=== PATIENT | male | born 1930 | race Caucasian/White ===

== ENCOUNTER 2017-01-19 12:45 | Emergency (ER) | payer MEDICARE ==
[~2017-01-19] VITALS: Ht 180.3 cm; Wt 100.0 kg
[~2017-01-19 12:45] MED LIST: ASPI81TA2 PO; FLUO5DRO2 OP; LEVO88TA39 PO; NITR1PAT62 TD; SIMV80TA62 PO; [UNRECOGNIZED DRUG - OTHER] PO
--- OUTSIDE RECORDS SUMMARY | 2017-01-19 12:49 | XMS REPORT | Referral Summary ---
Author Author [facility] Organization [facility] Address Unknown Phone Unavailable Care Team Providers Care Pediatric Dermatologist Name Role Phone Misa Vela Primary Care Physician [phone] Encounter Date(s): 08/13/16 - 08/13/16 [facility] [address] [place] [address] Discharge Diagnosis: Allergic rhinitis Discharge Diagnosis: Pure hypercholesterolemia Discharge Diagnosis: Restless leg Discharge Diagnosis: Encounter for medication monitoring Discharge Diagnosis: Hypothyroidism 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 Discharge Disposition: 01-Home or Self Care Attending Physician: Daniel Vela MD Admitting Physician: Daniel Vela MD Vital Signs Most recent to 1 oldest [Reference Range]: Temperature Tympanic 35.7 degC [36.6-38.1 degC] *LOW* (08/13/16 9:40 AM) Peripheral Pulse 87 bpm Rate [60-100 bpm] (08/13/16 9:40 AM) Blood Pressure 130/85 mmHg [90-140/60-90 mmHg] (08/13/16 9:40 AM) Problem List Condition Effective Dates Status Health Status Informant 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) Cataracts(Confirmed) Active Grade III 2004 Active Transitional cell CA(Confirmed)1 Unspecified Active essential hypertension(Confirm ed) Goiter, Active unspecified(Confirme d) Shingles(Confirmed) Active History of malignant Active neoplasm of bladder(Confirmed) Pneumonia(Confirmed) 1950 Active Pure Active hypercholesterolemia (Confirmed) Restless Active leg(Confirmed) UTI - near 2011 Active syncope(Confirmed) Urinary calculus, Active unspecified(Confirme d) 1then chemotherapy Allergies, Adverse Reactions, Alerts Substance Reaction Severity Status Atorvastatin Calcium Rash Active cephalexin Rash Active iodine Active niacin Rash Active sulfanilamide topical Rash Active Medications Aspir 81 81 mg, Oral, Daily, 0 Refill(s) Start Date: 8/13/14 Status: Ordered atenolol 50 mg oral tablet mg tabs, Oral, Daily, 0 Refill(s) Start Date: 07/08/16 Status: Ordered atorvastatin 20 mg oral tablet mg tabs, Oral, Daily, 0 Refill(s) Start Date: 07/08/16 Status: Ordered fluorometholone-neomycin ophthalmic 0 Refill(s) Start Date: 01/23/15 Status: Ordered furosemide 40 mg oral tablet mg tabs, Oral, Daily, 0 Refill(s) Start Date: 07/08/16 Status: Ordered nitroglycerin 0.2 mg/hr transdermal film, extended release 1 patches, Topical, Daily, # 90 patches, 0 Refill(s) Start Date: 06/06/14 Status: Ordered pantoprazole Daily, 0 Refill(s) Start Date: 07/08/16 Status: Ordered potassium citrate 10 mEq oral tablet, extended release mEq tabs, Oral, TID, 0 Refill(s) Start Date: 07/08/16 Status: Ordered rOPINIRole 2 mg oral tablet 2 mg 1 tabs, Oral, Daily, # 90 tabs, 3 Refill(s), Pharmacy: [facility], 1 tabs Oral Daily Start Date: 11/24/15 Status: Ordered simvastatin 80 mg oral tablet 80 mg 1 tabs, Oral, Bedtime (once a day), # 90 tabs, 3 Refill(s), Pharmacy: [facility], 1 tabs Oral Bedtime (once a day) Start Date: 03/12/16 Status: Ordered Synthroid 88 mcg (0.088 mg) oral tablet See Instructions, TAKE 1 TABLET DAILY, # 90 tabs, 1 Refill(s), Pharmacy: [facility], TAKE 1 TABLET DAILY Start Date: 03/12/16 Status: Ordered warfarin 3 mg oral tablet mg tabs, Oral, Daily, 0 Refill(s) Start Date: 07/08/16 Status: Ordered Results Chemistry Most recent to 1 oldest [Reference Range]: Sodium Lvl [135-144 139 mEq/L mEq/L] (08/13/16 10:40 AM) Potassium Lvl 4.2 mEq/L [3.5-5.2 mEq/L] (08/13/16 10:40 AM) Chloride [99-111 106 mEq/L mEq/L] (08/13/16 10:40 AM) CO2 [23-31 mEq/L] 21 mEq/L *LOW* (08/13/16 10:40 AM) AGAP [3-20] 12 (08/13/16 10:40 AM) BUN [8-26 mg/dL] 25 mg/dL (08/13/16 10:40 AM) Glucose Lvl [70-99 112 mg/dL mg/dL] *HI* (08/13/16 10:40 AM) Creatinine Lvl 2.02 mg/dL [0.72-1.25 mg/dL] *HI* (08/13/16 10:40 AM) eGFR [>60 mL/min] 31 mL/min 1 *ABN* (08/13/16 10:40 AM) Calcium Lvl 9.3 mg/dL [8.9-10.5 mg/dL] (08/13/16 10:40 AM) 1Result Comment: Multiply eGFR results by 1.21 for race. Immunizations Vaccine Date Refusal Reason tetanus/diphth/pertuss (Tdap) adult/adol1 06/05/16 tetanus/diphth/pertuss (Tdap) adult/adol 10/01/12 influenza virus vaccine, inactivated 08/13/16 influenza virus vaccine, inactivated 07/31/15 influenza virus vaccine, inactivated 07/22/14 influenza virus vaccine, live 08/02/13 influenza virus vaccine, live 08/03/12 pneumococcal 13-valent conjugate vaccine 08/14/15 pneumococcal 23-polyvalent vaccine 09/01/06 pneumococcal 23-polyvalent vaccine 08/17/96 tetanus-diphth toxoids (Td) adult/adol 11/17/97 1Location History: given at [facility] Procedures Procedure Date Related Diagnosis Body Site Cataract extraction - right 2013 Decompressive acromioplasty - rotator cuff 2011 repair Parastomal hernia repair, adhesion lysis 2011 TURP and bladder tumor resection 2007 Transurethral resection of bladder tumor 2006 Colonoscopy 2005 Cystoscopy, left ureteral stent placement x7 2004 Nephroureterectomy - left 2004 Cystoscopy, left ureteral stent placement x7 2002 Cystoscopy, stent placement 1999 Cystoscopy, urethral dilation 1999 Colonoscopy1 1997 Repeat right inguinal hernia repair 1973 Right inguinal hernia repair 1969 Kidney and bladder removal Left inguinal hernia repair Pacemaker 1Negative Social History Social History Type Response Smoking Status Former smoker; Type: Cigarettes; Started at age: 16; Stopped at age: 34 Assessment and Plan Extracted from: Title: CDM Author: Daniel Vela MD Date: 08/13/16 Impression and Plan Diagnosis Pure hypercholesterolemia (TDE44-IE E78.00, Discharge, Medical). Restless leg (DJJ99-UO G25.81, Discharge, Medical). Allergic rhinitis (HNT53-RX J30.9, Discharge, Medical). Hypothyroidism (EWW66-TX E03.9, Discharge, Medical). Peripheral neuropathy due to chemotherapy (AYX87-MU G62.0, Discharge, Medical). Encounter for medication monitoring (GKI60-LD Z51.81, Discharge, Medical). Orders Orders (Selected) Outpatient Orders Future (On Hold) BMP: BMP: Fasting Lipid Profile: .
--- OUTSIDE RECORDS SUMMARY | 2017-01-19 12:49 | XMS REPORT | Referral Summary ---
Author Author [facility] Organization [facility] Address Unknown Phone Unavailable Care Team Providers Care Senior Environmental Technician Name Role Phone Mirian Misa Primary Care Physician [phone] Encounter VC Date(s): 05/10/15 - 05/10/15 [facility] [address] [place], [place] [address] Discharge Diagnosis: Urinary tract infection Discharge Diagnosis: PERSONAL HISTORY OF URINARY CALCULI Discharge Disposition: 01-Home or Self Care Attending Physician: Nadya Liu APRN Admitting Physician: Brody Spencer MD Referring Physician: Bennie Bruno MD Vital Signs Most recent to 1 oldest [Reference Range]: Blood Pressure 110/60 mmHg [90-140/60-90 mmHg] (05/10/15 3:48 PM) Problem List Condition Effective Dates Status Health [...] mg, Oral, Daily, 0 Refill(s) Start Date: 06/01/14 Status: Ordered Co-Q10 100 mg oral capsule 1 caps, Oral, BID, # 30 caps, 0 Refill(s) Start Date: 01/23/15 Status: Ordered fluorometholone-neomycin ophthalmic 0 Refill(s) Start Date: 01/23/15 Status: Ordered nitroglycerin 0.2 mg/hr transdermal film, extended release 1 patches, Topical, Daily, # 90 patches, 0 Refill(s) Start Date: 06/06/14 Status: Ordered rOPINIRole 2 mg oral tablet See Instructions, TAKE 1 TABLET AT BEDTIME, # 90 tabs, 1 Refill(s), eRx: [facility], TAKE 1 TABLET AT BEDTIME Start Date: 08/28/15 Status: Ordered simvastatin 80 mg oral tablet See Instructions, TAKE 1 TABLET BY MOUTH AT BEDTIME, # 90 tabs, 1 Refill(s), Pharmacy: [facility], TAKE 1 TABLET BY MOUTH AT BEDTIME Start Date: 05/30/15 Status: Ordered Synthroid 88 mcg (0.088 mg) oral tablet See Instructions, TAKE 1 TABLET DAILY, # 90 tabs, 1 Refill(s), eRx: [facility], TAKE 1 TABLET DAILY Start Date: 08/28/15 Status: Ordered Results No data available for this section Immunizations Vaccine Date Refusal Reason tetanus/diphth/pertuss (Tdap) adult/adol 10/01/12 influenza virus vaccine, inactivated 07/31/15 influenza virus vaccine, inactivated 07/22/14 influenza virus vaccine, live 08/02/13 influenza virus vaccine, live 08/03/12 pneumococcal 13-valent conjugate vaccine 08/14/15 pneumococcal 23-polyvalent vaccine 09/01/06 pneumococcal 23-polyvalent vaccine 08/17/96 tetanus-diphth toxoids (Td) adult/adol 11/17/97 Procedures Procedure Date Related Diagnosis Body Site [...] placement 1999 Cystoscopy, urethral dilation 1999 Colonoscopy1 1998 Repeat right inguinal hernia repair 1973 Right inguinal hernia repair 1970 Kidney and bladder removal Left inguinal hernia repair Pacemaker 1Negative Social History Social History Type Response Smoking Status Former smoker; Type: Cigarettes; Started at age: 16; Stopped at age: 34 Assessment and Plan Extracted from: Title: Office Visit Note Author: Noe Nadya Kelly DIRECTOR OF DEVELOPMENT Date: 05/10/15 Assessment/Plan 1.Urinary tract infection Hematuria, unspecified PERSONAL HISTORY OF URINARY CALCULI Patient will start Cipro. Follow-up in the office with Dr. Spencer for a cystoscopy as well as a renal bladder ultrasound. If his symptoms return prior to his follow-up appointment he will call our office. All of his questions were answered to his satisfaction. Orders: ciprofloxacin, 500 mg 1 tabs, Oral, q12hr, X 10 days, # 20 tabs, 0 Refill(s), [facility], 1 tabs Oral q12hr,x10 days US Renal/Bladder
[2017-01-19 12:50] VITALS: Ht 180.3 cm; Wt 100.0 kg
--- OUTSIDE RECORDS SUMMARY | 2017-01-19 12:50 | XMS REPORT | Referral Summary ---
Author Author [facility], [facility] Organization [facility] Address Unknown Phone Unavailable Care Team Providers Care Transplant Nurse Practitioner Name Role Phone Misa Vela Primary Care Physician [phone] Encounter VC Date(s): 02/13/16 - 02/13/16 [facility] [address] [place] [address] Discharge Diagnosis: Restless leg Discharge Diagnosis: Skin lesion of scalp Discharge Diagnosis: PN (peripheral neuropathy) Discharge Diagnosis: Hx of gout Discharge Diagnosis: Right arm pain Discharge Diagnosis: Hypothyroidism, unspecified Discharge Disposition: 01-Home or Self Care Attending Physician: Daniel Vela MD Admitting Physician: Daniel Vela MD Vital Signs Most recent to 1 oldest [Reference Range]: Temperature Tympanic 36.1 degC [36.6-38.1 degC] *LOW* (02/13/16 9:15 AM) Apical Heart Rate 69 bpm [60-100 bpm] (02/13/16 9:15 AM) Blood Pressure 126/72 mmHg [90-140/60-90 mmHg] (02/13/16 9:15 AM) SpO2 97 % (02/13/16 9:15 AM) Problem List Condition Effective Dates Status [...] Daily, # 90 tabs, 3 Refill(s), Pharmacy: [facility], 1 tabs Oral Daily Start Date: 11/24/15 Status: Ordered simvastatin 80 mg oral tablet 80 mg 1 tabs, Oral, Bedtime (once a day), # 90 tabs, 3 Refill(s), Pharmacy: [facility], 1 tabs Oral Bedtime (once a day) Start Date: 11/24/15 Status: Ordered Synthroid 88 mcg (0.088 mg) oral tablet See Instructions, TAKE 1 TABLET DAILY, # 90 tabs, 2 Refill(s), Pharmacy: [facility], TAKE 1 TABLET DAILY Start Date: 11/24/15 Status: Ordered Results Chemistry Most recent to 1 oldest [Reference Range]: Uric Acid [3.5-7.2 8.1 mg/dL mg/dL] *HI* (02/13/16 12:01 AM) Chol [0-199 mg/dL] 124 mg/dL (02/13/16 9:06 AM) Trig [0-149 mg/dL] 218 mg/dL *HI* (02/13/16 9:06 AM) HDL [40-84 mg/dL] 30 mg/dL *LOW* (02/13/16 9:06 AM) LDL [0-130 mg/dL] 50 mg/dL (02/13/16 9:06 AM) VLDL Cholesterol 44 mg/dL [0-28 mg/dL] *HI* (02/13/16 9:06 AM) Cardiac Risk 4.1 [0.0-5.7] (4/26/16 9:06 AM) TSH with Reflex Free 2.92 T4 [0.35-4.94] (02/13/16 9:06 AM) Immunizations Vaccine Date Refusal Reason tetanus/diphth/pertuss (Tdap) [...] 2011 repair Parastomal hernia repair, adhesion lysis 2010 TURP and bladder tumor resection 2006 Transurethral resection of bladder tumor 2006 Colonoscopy 2005 Cystoscopy, left ureteral stent placement x7 2003 Nephroureterectomy - left 2004 Cystoscopy, left ureteral [...] 34 Assessment and Plan Extracted from: Title: General Exam * Author: Daniel Vela MD Date: 02/13/16 Impression and Plan Diagnosis Hypothyroidism (XIH82-QK E03.9, Working, Medical). Pure hypercholesterolemia (BEB03-IO E78.0, Working, Medical). Skin lesion of scalp (MSC07-XD L98.9, Discharge, Medical). PN (peripheral neuropathy) (TYK73-GJ G62.9, Discharge, Medical). Hx of gout (ORS59-QO Z87.39, Discharge, Medical). Hypothyroidism, unspecified (NIF22-YL E03.9, Discharge, Medical). Right arm pain (ZSX37-VP M79.601, Discharge, Medical). Restless leg (JBQ87-AA G25.81, Discharge, Medical). Plan: Discussed plan to have shave excision for suspicious scalp lesions. Disucessed expectations including that the path report will likely not show complete removal (but hopefully removal will be completed by currettement and cautery.) Discussed alternative of ellipse excision - pros and cons or each technique. Questions answered. Informed consent obtained. Discussed overuse of right arm and discussed plan for neuorpathy Will check TSH In agreement with plan for restless leg syndrome Will check cholesterol Follow up in 6 months, otherwise come for excision . Patient Instructions: Counseled: Patient, Spouse.
--- OUTSIDE RECORDS SUMMARY | 2017-01-19 12:50 | XMS REPORT | Referral Summary ---
Author Author [facility], [facility] Organization [facility] Address Unknown Phone Unavailable Care Team Providers Care Industrial Fabric Cutter Name Role Phone Misa Vela Primary Care Physician [phone] Encounter VC Date(s): 11/14/15 - 11/14/15 [facility], [address] [place] [address] Discharge Diagnosis: Skin lesion of scalp Discharge Diagnosis: Right shoulder pain Discharge Diagnosis: Restless leg Discharge Diagnosis: Hypothyroidism Discharge Diagnosis: Unspecified essential hypertension Discharge Diagnosis: Pure hypercholesterolemia Discharge Disposition: 01-Home or Self Care Attending Physician: Daniel Vela MD Admitting Physician: Daniel Vela MD Vital Signs Most recent to 1 oldest [Reference Range]: Temperature Tympanic 36.8 degC [36.6-38.1 degC] (11/14/15 1:54 PM) Peripheral Pulse 88 bpm Rate [60-100 bpm] (11/14/15 1:54 PM) Blood Pressure 120/77 mmHg [90-140/60-90 mmHg] (11/14/15 1:54 PM) Problem List Condition Effective Dates Status Health Status Informant 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) Cataracts(Confirmed) Active Grade III 2004 Active Transitional cell CA(Confirmed)1 Unspecified Active essential hypertension(Confirm ed) Goiter, Active unspecified(Confirme d) Shingles(Confirmed) Active History of malignant Active neoplasm of bladder(Confirmed) Pneumonia(Confirmed) 1949 Active Pure Active hypercholesterolemia (Confirmed) Restless Active [...] BEDTIME, # 90 tabs, 1 Refill(s), eRx: [facility], TAKE 1 TABLET AT BEDTIME Start Date: 08/28/15 Status: Ordered simvastatin 80 mg oral tablet See Instructions, TAKE 1 TABLET BY MOUTH AT BEDTIME, # 90 tabs, 1 Refill(s), Pharmacy: [facility], TAKE 1 TABLET BY MOUTH AT BEDTIME Start Date: 05/30/15 Status: Ordered Synthroid 88 mcg (0.088 mg) oral tablet See Instructions, TAKE 1 TABLET DAILY, # 90 tabs, 1 Refill(s), eRx: [facility], TAKE 1 TABLET DAILY Start Date: [...] 34 Assessment and Plan Extracted from: Title: Get acquainted Author: Daniel Vela MD Date: 11/14/15 Assessment/Plan Hypothyroidism Pure hypercholesterolemia Restless leg Right shoulder pain Skin lesion of scalp Unspecified essential hypertension I think the shoulder pain is mostly rotator cuff dysfunction. Refer for physical therapy. I suggested topical hydrocortisone cream on the scalp lesion and follow-up in 2 -3 weeks if it does not improve with this approach. I think an underlying malignancy is unlikely, but if it does not improve we may need to remove the crusting to examine the underlying lesion. If all goes well, follow-up in 3 months with labs at that time to include fasting lipids and TSH. In the meantime we will continue current medications.
--- OUTSIDE RECORDS SUMMARY | 2017-01-19 12:50 | XMS REPORT | Referral Summary ---
Author Author [facility] Organization [facility] Address Unknown Phone Unavailable Care Team Providers Care Residence Life Director Name Role Phone Licha Bruno Primary Care Physician [phone] Encounter VC Date(s): 09/11/15 - 09/11/15 [facility] [address] [place], [place] [address] Discharge Diagnosis: History of malignant neoplasm of bladder Discharge Diagnosis: History of kidney cancer Discharge Disposition: 01-Home or Self Care Attending Physician: Brody Spencer MD Admitting Physician: Brody Spencer MD Vital Signs Most recent to 1 oldest [Reference Range]: Blood Pressure 148/92 mmHg [90-140/60-90 mmHg] *HI* (09/11/15 8:57 AM) Problem List Condition Effective Dates Status [...] BEDTIME, # 90 tabs, 1 Refill(s), eRx: [facility], TAKE 1 TABLET AT BEDTIME Start Date: 08/28/15 Status: Ordered simvastatin 80 mg oral tablet See Instructions, TAKE 1 TABLET BY MOUTH AT BEDTIME, # 90 tabs, 1 Refill(s), Pharmacy: [facility], TAKE 1 TABLET BY MOUTH AT BEDTIME Start Date: 05/30/15 Status: Ordered Synthroid 88 mcg (0.088 mg) oral tablet See Instructions, TAKE 1 TABLET DAILY, # 90 tabs, 1 Refill(s), eRx: [facility], TAKE 1 TABLET DAILY Start [...] Extracted from: Title: Office Visit Note Author: Brody Spencer MD Date: 09/11/15 Assessment/Plan History of kidney cancer Ordered: CT Abdomen Pelvis w/o Contrast History of malignant neoplasm of bladder
--- OUTSIDE RECORDS SUMMARY | 2017-01-19 12:50 | XMS REPORT | Continuity of Care Document ---
Author Author [facility] Organization [facility] Address Unknown Phone Unavailable Allergies Active Description Code Type Severity Reaction Onset Reported/Identified Relationship to Patient Clinical Status Yes iodine iodine Drug Allergy Severe DECREASED KIDNEY FUNCTION/PT ONLY HAS ONE KIDNEY 2010 Yes niacin niacin Drug Allergy Moderate GI UPSET 07/19/2011 Yes atorvastatin atorvastatin Drug Allergy Unknown UNKNOWN 08/04/2012 Yes cephalexin cephalexin Drug Allergy Unknown UPSET STOMACH 08/04/2012 Yes Sulfa (Sulfonamide Antibiotics) Sulfa (Sulfonamide Antibiotics) Drug Allergy Unknown UNKNOWN 08/04/2012 Yes cephalexin NKMA N/A Rash 02/15/2014 Yes niacin NKMA N/A Rash 02/15/2014 Yes sulfanilamide topical NKMA N/A Rash 02/15/2014 Yes Atorvastatin Calcium NKMA N/A [id number] 05/31/2014 Yes iodine NKMA N/A N/A 09/11/2015 Medications Problems Procedures Results Test Result Range LACTIC ACID - 08/03/12 00:40 LACTIC ACID 1.9 mmol/L 0.5-2.2 CREATINE KINASE (CK/CPK) - 08/03/12 00:40 CREATINE KINASE (CK/CPK) 240 Units/L < 309 SALICYLATE (ASPIRIN) - 08/03/12 00:40 SALICYLATE < 2.8 mg/dL 2.8-29.0 ALCOHOL (ETHANOL) SERUM - 08/03/12 00:40 ALCOHOL (ETHANOL) SERUM < 3 mg/dL < 10 ACETONE, QUANTITATIVE - 08/03/12 00:40 ACETONE, QUANTITATIVE < 10 mg/dL < 10 BETA HYDROXYBUTYRATE - 08/03/12 00:40 BETA HYDROXYBUTYRATE 0.1 mmol/L < 0.6 CHEM/HEM PROFILE-BEDSIDE - 08/03/12 19:10 POTASSIUM 3.8 mmol/L 3.5-5.3 METHOD Bedside ANION GAP 20 mmol/L 10-20 METHOD Bedside GLUCOSE 107 mg/dL 70-99 BLOOD UREA NITROGEN 27 mg/dL 7-20 CREATININE 2.2 mg/dL 0.8-1.3 HEMOGLOBIN 14.6 gm/dL 14.0-18.0 HEMATOCRIT 43.0 % 40.0-54.0 SODIUM 143 mmol/L 135-148 CHLORIDE 108 mmol/L 98-110 CARBON DIOXIDE 20 mmol/L 21-32 CALCIUM IONIZED 4.4 mg/dL 4.5-5.3 TROPONIN I BEDSIDE - 08/03/12 19:22 METHOD Bedside TROPONIN I < 0.04 ng/mL < 0.11 CBC W/DIFF - 08/03/12 19:28 EOSINOPHIL # 0.5 k/cumm 0.1-0.5 EOSINOPHIL % 5 % 2-4 GRANULOCYTE # 7.8 k/cumm 2.0-9.0 GRANULOCYTE % 79 % 50-75 LYMPHOCYTE # 0.8 k/cumm 1.0-4.0 LYMPHOCYTE % 8 % 20-30 MEAN CELL HGB 33.2 pg 27.0-33.0 MEAN CELL HGB CONCENTRATION 34.1 g/dl 32.0-36.0 MEAN CELL VOLUME 97.4 fl 80.0-100.0 MONOCYTE # 0.8 k/cumm 0.1-1.0 MONOCYTE % 8 % 4-6 RED BLOOD CELL 4.55 m/cumm 4.00-6.00 RED CELL DISTRIBUTION WIDTH 12.6 % 11.0- 15.6 WHITE BLOOD CELL 9.9 k/cumm 5.0-10.0 HEMOGLOBIN 15.1 gm/dL 14.0-18.0 HEMATOCRIT 44.3 % 40.0-54.0 PLATELET COUNT 199 k/cumm 150-450 HEPATIC FUNCTION PANEL - 08/03/12 19:28 BILI UNCONJUGATED 0.7 mg/dL 0.0-0.7 AST/SGOT 23 Units/L 10-37 ALT/SGPT 18 Units/L < 66 TOTAL PROTEIN 8.2 gm/dL 6.4-8.2 ALBUMIN 4.4 gm/dL 3.4-5.0 BILI TOTAL 0.9 mg/dL 0.0-1.0 ALKALINE PHOSPHATASE TOTAL 117 Units/L 50 -136 BILI CONJUGATED 0.1 mg/dL 0.0-0.3 D-DIMER QUANT - 08/03/12 19:28 D-DIMER QUANT < 150 ng/mL 0-229 ARTERIAL BLOOD GAS - 08/03/12 19:48 ABG BASE EXCESS -3.5 meq/L -3.0-3.0 ABG FIO2 ROOM AIR % ABG BICARBONATE 15.9 meq/L 23.0-28.0 ABG PCO2 18 mm Hg 34-45 ABG PH 7.56 7.35-7.45 ABG PO2 76 mm Hg 75-100 ABG O2 SATURATION 97 % 93-100 ABG SITE LT RADIAL UA MICROSCOPIC - 08/03/12 20:20 UA BACTERIA 3+ NEGATIVE UA EPITHELIAL CELLS 2+ epi/hpf 0 - 1+ UA RBC 0-3 rbc/hpf 0 - 3 UA VOLUME FOR EXAM 12.0 mL (12mL STD) UA WBC 20-50 wbc/hpf 0 - 5 URINE CULTURE - 08/03/12 20:20 Uncategorized BLOOD CULTURE - 08/04/12 00:20 Uncategorized B-TYPE NATRIURETIC PEPTIDE - 08/04/12 00:40 B-TYPE NATRIURETIC PEPTIDE 38 pg/mL < 100 BLOOD CULTURE - 08/04/12 00:40 Uncategorized CBC W/DIFF - 08/04/12 04:44 EOSINOPHIL # 0.3 k/cumm 0.1-0.5 EOSINOPHIL % 4 % 2-4 GRANULOCYTE # 7.0 k/cumm 2.0-9.0 GRANULOCYTE % 82 % 50-75 LYMPHOCYTE # 0.6 k/cumm 1.0-4.0 LYMPHOCYTE % 7 % 20-30 MEAN CELL HGB 34.5 pg 27.0-33.0 MEAN CELL HGB CONCENTRATION 34.2 g/dl 32.0-36.0 MEAN CELL VOLUME 100.8 fl 80.0-100.0 MONOCYTE # 0.6 k/cumm 0.1-1.0 MONOCYTE % 7 % 4-6 RED BLOOD CELL 3.69 m/cumm 4.00-6.00 RED CELL DISTRIBUTION WIDTH 13.2 % 11.0- 15.6 WHITE BLOOD CELL 8.5 k/cumm 5.0-10.0 HEMOGLOBIN 12.7 gm/dL 14.0-18.0 HEMATOCRIT 37.2 % 40.0-54.0 PLATELET COUNT 169 k/cumm 150-450 SED RATE - 08/04/12 04:44 SED RATE 21 mm/hr 0-7 METABOLIC PANEL, COMPREHN - 08/04/12 04:44 POTASSIUM 3.9 mmol/L 3.5-5.3 EST GFR (MDRD) 34 mL/min > 59 ANION GAP 11 mmol/L 5-15 EST CrCl (CG) 32 mL/min > 59 GLUCOSE 130 mg/dL 70-99 CALCIUM 8.0 mg/dL 8.5-10.1 BLOOD UREA NITROGEN 27 mg/dL 7-20 CREATININE 2.0 mg/dL 0.8-1.3 SODIUM 140 mmol/L 135-148 CHLORIDE 108 mmol/L 98-110 AST/SGOT 19 Units/L 10-37 ALT/SGPT 16 Units/L < 66 CARBON DIOXIDE 21 mmol/L 21-32 TOTAL PROTEIN 6.6 gm/dL 6.4-8.2 ALBUMIN 3.4 gm/dL 3.4-5.0 BILI TOTAL 0.8 mg/dL 0.0-1.0 ALKALINE PHOSPHATASE TOTAL 71 Units/L 50- 136 LIPID PANEL - 08/04/12 04:44 CHOLESTEROL/HDL RATIO 4.0 < 5.0 LDL CHOLESTEROL 40 mg/dL < 100 VLDL CHOLESTEROL 41 mg/dL < 30 TRIGLYCERIDES 204 mg/dL < 150 CHOLESTEROL 108 mg/dL < 200 HDL CHOLESTEROL 27 mg/dL > 39 THYROID STIM HORMONE (TSH) - 08/04/12 04:44 THYROID STIM HORMONE (TSH) 0.62 uIU/mL 0.34-4.82 PHOSPHORUS - 08/04/12 04:44 PHOSPHORUS 3.1 mg/dL 2.5-4.9 MAGNESIUM - 08/04/12 04:44 MAGNESIUM 1.7 mg/dL 1.8-2.4 VITAMIN B12 - 08/04/12 04:44 VITAMIN B12 116 pg/mL 211-911 HEMOGLOBIN A1C - 08/04/12 04:44 HEMOGLOBIN A1C 6.5 % < 5.7 TROPONIN I - 08/04/12 04:44 TROPONIN I < 0.02 ng/mL < 0.07 METHYLMALONIC ACID, SERUM - 08/04/12 04:44 METHYLMALONIC ACID, SERUM TEST NOT PERFORMED nmol/L 73-376 LABORATORY MISCELLANEOUS TEST - 08/04/12 10:52 PERFORMING LAB NMS LAB LABORATORY TEST RESULT Note LABORATORY TEST KETONE BODIES PNL,S UR SODIUM - 08/04/12 11:20 UR SODIUM COMMENT RANDOM UR SODIUM LEVEL 54 mmol/L 20-40 UR CREATININE - 08/04/12 11:20 UR CREATININE COMMENT RANDOM UR CREATININE LEVEL 147.1 mg/dL 44-467 UR DRUGS OF ABUSE SCREEN - 08/04/12 11:20 UR AMPHETAMINES SCREEN NEG (<1000 ng/mL) NEGATIVE UR BARBITURATE SCREEN NEG (< 200 ng/mL) NEGATIVE DRUGS OF ABUSE SCREEN COMMENT UR OPIATES SCREEN NEG (< 300 ng/mL) NEGATIVE UR PHENCYCLIDINE (PCP) SCREEN NEG (< 25 ng/mL) NEGATIVE UR CANNABINOIDS (THC) SCREEN NEG (< 50 ng/mL) NEGATIVE UR COCAINE METABOLITE SCREEN NEG (< 300 ng/mL) NEGATIVE UR METHADONE SCREEN NEG (< 300 ng/mL) NEGATIVE UR BENZODIAZEPINE SCREEN NEG (< 200 ng/mL) NEGATIVE CREATINE KINASE (CK/CPK) - 08/04/12 17:44 CREATINE KINASE (CK/CPK) 273 Units/L < 309 CK MB - 08/04/12 17:44 CK MB 5.9 ng/mL < 4.0 TROPONIN I - 08/04/12 17:44 TROPONIN I < 0.02 ng/mL < 0.07 RENAL FUNCTION PANEL - 08/05/12 05:20 POTASSIUM 3.9 mmol/L 3.5-5.3 EST GFR (MDRD) 39 mL/min > 59 ANION GAP 9 mmol/L 5-15 EST CrCl (CG) 36 mL/min > 59 GLUCOSE 124 mg/dL 70-99 CALCIUM 8.2 mg/dL 8.5-10.1 BLOOD UREA NITROGEN 25 mg/dL 7-20 CREATININE 1.8 mg/dL 0.8-1.3 SODIUM 140 mmol/L 135-148 CHLORIDE 106 mmol/L 98-110 CARBON DIOXIDE 25 mmol/L 21-32 ALBUMIN 3.5 gm/dL 3.4-5.0 PHOSPHORUS 2.4 mg/dL 2.5-4.9 MAGNESIUM - 08/05/12 05:20 MAGNESIUM 1.9 mg/dL 1.8-2.4 TROPONIN I - 08/05/12 05:20 TROPONIN I < 0.02 ng/mL < 0.07 CBC W/MANUAL DIFF - 08/05/12 05:20 MEAN CELL HGB 34.8 pg 27.0-33.0 MEAN CELL HGB CONCENTRATION 34.6 g/dl 32.0-36.0 MEAN CELL VOLUME 100.3 fl 80.0-100.0 RED BLOOD CELL 3.79 m/cumm 4.00-6.00 RED CELL DISTRIBUTION WIDTH 13.5 % 11.0- 15.6 WHITE BLOOD CELL 6.1 k/cumm 5.0-10.0 HEMOGLOBIN 13.2 gm/dL 14.0-18.0 HEMATOCRIT 38.0 % 40.0-54.0 PLATELET COUNT 154 k/cumm 150-450 MANUAL DIFF(O) - 08/05/12 05:20 BAND % 12 % 0-10 EOSINOPHIL # 0.2 k/cumm 0.1-0.5 EOSINOPHIL % 3 % 2-4 GRANULOCYTE # 4.6 k/cumm 2.0-9.0 LYMPHOCYTE # 0.9 k/cumm 1.0-4.0 LYMPHOCYTE % 14 % 20-30 DIFFERENTIAL MANUAL MONOCYTE # 0.4 k/cumm 0.1-1.0 MONOCYTE % 7 % 4-6 RBC MORPH NOTED SEGMENTED NEUTROPHIL % 64 % 50-70 ARTERIAL BLOOD GAS - 08/05/12 06:15 ABG BASE EXCESS -1.2 meq/L -3.0-3.0 ABG FIO2 ROOM AIR % ABG BICARBONATE 22.6 meq/L 23.0-28.0 ABG PCO2 35 mm Hg 34-45 ABG PH 7.42 7.35-7.45 ABG PO2 69 mm Hg 75-100 ABG O2 SATURATION 94 % 93-100 ABG SITE RT BRACH TROPONIN I BEDSIDE - 05/12/14 20:40 METHOD Bedside TROPONIN I < 0.04 ng/mL < 0.11 CHEM/HEM PROFILE-BEDSIDE - 05/12/14 20:42 POTASSIUM 4.0 mmol/L 3.5-5.3 METHOD Bedside ANION GAP 15 mmol/L 10-20 METHOD Bedside GLUCOSE 175 mg/dL 70-99 BLOOD UREA NITROGEN 32 mg/dL 7-20 CREATININE 2.6 mg/dL 0.8-1.3 HEMOGLOBIN 13.6 gm/dL 14.0-18.0 HEMATOCRIT 40.0 % 40.0-54.0 SODIUM 142 mmol/L 135-148 CHLORIDE 110 mmol/L 98-110 CARBON DIOXIDE 22 mmol/L 21-32 CALCIUM IONIZED 4.7 mg/dL 4.5-5.3 CBC - 05/12/14 20:43 MEAN CELL HGB 33.3 pg 27.0-33.0 MEAN CELL HGB CONCENTRATION 33.8 g/dL 32.0-37.0 MEAN CELL VOLUME 98.6 fl 80.0-100.0 RED BLOOD CELL 4.20 m/cumm 4.00-6.00 RED CELL DISTRIBUTION WIDTH 12.8 % 11.0- 15.6 WHITE BLOOD CELL 7.6 k/cumm 5.0-10.0 HEMOGLOBIN 14.0 gm/dL 14.0-18.0 HEMATOCRIT 41.4 % 40.0-54.0 PLATELET COUNT 210 k/cumm 150-400 Encounters ACCT No. Visit Date/Time Discharge Status Pt. Type Provider Facility Loc./Unit Complaint [id number] 05/12/2014 20:09:00 2013 23:25:00 DIS Emergency Sarah AVERY, Cyndy Us [facility] WThomasTRACE [id number] 08/04/2012 12:51:00 2011 12:57:00 DIS Inpatient Home AVERY, Jeny Willingham [facility] [id number]
--- OUTSIDE RECORDS SUMMARY | 2017-01-19 12:50 | XMS REPORT | Referral Summary ---
Author Organization Unknown Address Unknown Phone Unavailable Care Team Providers Care Financial Writer Name Role Phone Licha Bruno Primary Care Physician [phone] Encounter Date(s): 01/04/15 - 01/04/15 Via Ni Andrews, VIANEY, W , Otolaryngology [address] [place], [place] [address] Discharge Diagnosis: Bilateral sensorineural hearing loss Discharge Disposition: Home or Self Care Attending Physician: Gisell Sellers Admitting Physician: Gisell Sellers Vital Signs No data available for this section Problem List Condition Effective Dates Status Health Status Informant 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) Cataracts(Confirmed) Active Grade III 2003 Active Transitional cell CA(Confirmed)1 Unspecified Active essential hypertension(Confirm ed) Goiter, Active unspecified(Confirme d) Shingles(Confirmed) Active History of malignant Active neoplasm of bladder(Confirmed) Pneumonia(Confirmed) 1949 Active Pure Active hypercholesterolemia (Confirmed) Restless Active leg(Confirmed) UTI - near 2011 Active syncope(Confirmed) Urinary calculus, Active unspecified(Confirme d) 1then chemotherapy Allergies, Adverse Reactions, Alerts Substance Reaction Severity Status Atorvastatin Calcium Rash Active cephalexin Rash Active niacin Rash Active sulfanilamide topical Rash Active Medications Aspir 81 81 mg, Oral, Daily, 0 Refill(s) Start Date: 06/01/14 Status: Ordered nitroglycerin 0.2 mg/hr transdermal film, extended release 1 patches, Topical, Daily, # 90 patches, 0 Refill(s) Start Date: 06/06/14 Status: Ordered rOPINIRole 2 mg oral tablet See Instructions, TAKE 1 TABLET BY MOUTH AT BEDTIME, # 90 tabs, 0 Refill(s), Pharmacy: [facility], TAKE 1 TABLET BY MOUTH AT BEDTIME Special Instructions: TAKE 1 TABLET BY MOUTH AT BEDTIME Start Date: 12/02/14 Status: Ordered simvastatin 80 mg oral tablet See Instructions, TAKE 1 TABLET BY MOUTH AT BEDTIME, # 90 tabs, 0 Refill(s), Pharmacy: [facility], TAKE 1 TABLET BY MOUTH AT BEDTIME Special Instructions: TAKE 1 TABLET BY MOUTH AT BEDTIME Start Date: 12/02/14 Status: Ordered Synthroid 88 mcg (0.088 mg) oral tablet See Instructions, TAKE 1 TABLET BY MOUTH EVERY DAY, # 90 tabs, 0 Refill(s), Pharmacy: [facility], Patient will need follow up appointment prior to next refill, TAKE 1 TABLET BY MOUTH EVERY DAY Special Instructions: TAKE 1 TABLET BY MOUTH EVERY DAY Start Date: 12/02/14 Status: Ordered Results No data available for this section Immunizations Vaccine Date Refusal Reason tetanus/diphth/pertuss (Tdap) adult/adol 10/01/12 influenza virus vaccine, inactivated 07/22/14 influenza virus vaccine, live 08/02/13 influenza virus vaccine, live 08/03/12 pneumococcal 23-polyvalent vaccine 09/01/06 pneumococcal 23-polyvalent vaccine 08/17/96 tetanus-diphth toxoids (Td) adult/adol 11/17/97 Procedures Procedure Date Related Diagnosis Body Site Cataract extraction - right 2012 Decompressive acromioplasty - rotator cuff 2011 repair Parastomal hernia repair, adhesion lysis 2010 TURP and bladder tumor resection 2007 Transurethral [...] Stopped at age: 34 Assessment and Plan No data available for this section
--- OUTSIDE RECORDS SUMMARY | 2017-01-19 12:50 | XMS REPORT | Referral Summary ---
Author Author [facility] Organization [facility] Address Unknown Phone Unavailable Care Team Providers Care Reducing System Operator Name Role Phone Misa Vela Primary Care Physician [phone] Encounter VC Date(s): 03/12/16 - 03/12/16 [facility], Family [address] [place] [address] Discharge Diagnosis: Skin lesion of scalp Discharge Disposition: 01-Home or Self Care Attending Physician: Daniel Vela MD Admitting Physician: Daniel Vela MD Vital Signs Most recent to 1 oldest [Reference Range]: Peripheral Pulse 72 bpm Rate [60-100 bpm] (03/12/16 1:10 PM) Blood Pressure 130/82 mmHg [90-140/60-90 mmHg] (03/12/16 1:10 PM) Mean Arterial 98 mmHg Pressure, Cuff (03/12/16 1:10 PM) Problem List Condition Effective Dates Status [...] 0 Refill(s) Start Date: 06/01/14 Status: Ordered atenolol 50 mg oral tablet 50 mg 1 tabs, Oral, Daily, # 90 tabs, 1 Refill(s), Pharmacy: [facility], 1 tabs Oral Daily Start Date: 03/12/16 Status: Ordered atorvastatin 20 mg oral tablet 20 mg 1 tabs, Oral, Daily, # 90 tabs, 1 Refill(s), Pharmacy: [facility], 1 tabs Oral Daily Start Date: 03/12/16 Status: Ordered Co-Q10 100 mg oral capsule 1 caps, Oral, BID, # 30 caps, 0 Refill(s) Start Date: 01/23/15 Status: Ordered fluorometholone-neomycin ophthalmic 0 Refill(s) Start Date: 01/23/15 Status: Ordered furosemide 40 mg oral tablet 40 mg 1 tabs, Oral, Daily, # 180 tabs, 1 Refill(s), Pharmacy: [facility], 1 tabs Oral Daily Start Date: 03/12/16 Status: Ordered nitroglycerin 0.2 mg/hr transdermal film, extended release 1 patches, Topical, Daily, # 90 patches, 0 Refill(s) Start Date: 06/06/14 Status: Ordered pantoprazole 40 mg oral delayed release tablet 40 mg 1 tabs, Oral, Daily, # 90 tabs, 1 Refill(s), Pharmacy: [facility], 1 tabs Oral Daily Start Date: 03/12/16 Status: Ordered potassium chloride 10 mEq oral tablet, extended release 10 mEq 1 tabs, Oral, BID, # 180 tabs, 1 Refill(s), Pharmacy: [facility], 1 tabs Oral BID Start Date: 03/12/16 Status: Ordered rOPINIRole 2 mg oral tablet 2 mg 1 tabs, Oral, Daily, # 90 tabs, 3 Refill(s), Pharmacy: [facility], 1 tabs Oral Daily Start Date: 11/24/15 Status: Ordered simvastatin 80 mg oral tablet 80 mg 1 tabs, Oral, Bedtime (once a day), # 90 tabs, 3 Refill(s), Pharmacy: [facility], 1 tabs Oral Bedtime (once a day) Start Date: 03/12/16 Status: Ordered Synthroid 88 mcg (0.088 mg) oral tablet See Instructions, TAKE 1 TABLET DAILY, # 90 tabs, 1 Refill(s), Pharmacy: [facility], TAKE 1 TABLET DAILY Start Date: 03/12/16 Status: Ordered warfarin 1 mg oral tablet 1 mg 1 tabs, Oral, Daily, # 90 Each, 1 Refill(s), Pharmacy: [facility], 1 tabs Oral Daily Start Date: 03/12/16 Status: Ordered warfarin 3 mg oral tablet 3 mg 1 tabs, Oral, Daily, # 90 Each, 1 Refill(s), Pharmacy: [facility], 1 tabs Oral Daily Start Date: 03/12/16 Status: Ordered Results No data available for [...] right 2013 Decompressive acromioplasty - rotator cuff 2010 repair Parastomal hernia repair, adhesion lysis 2011 [...] 34 Assessment and Plan Extracted from: Title: Lesion excision, scalp Author: Daniel Vela MD Date: 03/12/16 Assessment/Plan 1.Skin lesion of scalp Discussed post procedure care and expectations. Specimen sent to pathology. Follow-up based on path report. Orders: simvastatin, 80 mg 1 tabs, Oral, Bedtime (once a day), # 90 tabs, 3 Refill(s), [facility], 1 tabs Oral Bedtime ( once a day)
--- OUTSIDE RECORDS SUMMARY | 2017-01-19 12:50 | XMS REPORT | Referral Summary ---
Author Author [facility] Organization [facility] Address Unknown Phone Unavailable Care Team Providers Care Automotive Center Manager Name Role Phone Licha Bruno Primary Care Physician [phone] Encounter VC Date(s): 08/14/15 - 08/14/15 [facility] [address] [place] [address] [place] [address] Discharge Disposition: 01-Home or Self Care Attending Physician: Karly Cool MD Admitting Physician: Karly Cool MD Vital Signs No data available for this [...] BEDTIME, # 90 tabs, 1 Refill(s), Pharmacy: [facility], TAKE 1 TABLET BY MOUTH AT BEDTIME Start Date: 05/30/15 Status: Ordered simvastatin 80 mg oral tablet See Instructions, TAKE 1 TABLET BY MOUTH AT BEDTIME, # 90 tabs, 1 Refill(s), Pharmacy: [facility], TAKE 1 TABLET BY MOUTH AT BEDTIME Start Date: 05/30/15 Status: Ordered Synthroid 88 mcg (0.088 mg) oral tablet See Instructions, TAKE 1 TABLET BY MOUTH EVERY DAY, # 90 tabs, 1 Refill(s), Pharmacy: [facility], TAKE 1 TABLET BY MOUTH EVERY DAY Start Date: 05/30/15 Status: Ordered Results No data available for [...] right 2012 Decompressive acromioplasty - rotator cuff 2010 repair Parastomal hernia repair, adhesion lysis 2010 [...]
--- OUTSIDE RECORDS SUMMARY | 2017-01-19 12:50 | XMS REPORT | Referral Summary ---
Author Author [facility] Organization [facility] Address Unknown Phone Unavailable Care Team Providers Care Cryptoanalysis Teacher Name Role Phone Misa Vela Primary Care Physician [phone] Encounter VC Date(s): 08/14/15 - 08/14/15 [facility] [address] [place] [address] [place] [address] Discharge Disposition: 01-Home or Self [...] DAILY, # 90 tabs, 2 Refill(s), Pharmacy: [facility], TAKE 1 TABLET DAILY Start Date: 11/24/15 Status: Ordered Results No data available for [...]
--- OUTSIDE RECORDS SUMMARY | 2017-01-19 12:50 | XMS REPORT | Referral Summary ---
Author Author [facility] Organization [facility] Address Unknown Phone Unavailable Care Team Providers Care Railroad Wheels And Axle Inspector Name Role Phone Misa Vela Primary Care Physician [phone] Encounter VC Date(s): 12/03/16 - 12/03/16 [facility], [address] [place] [address] [place] Discharge Diagnosis: Monoarticular arthritis Discharge Diagnosis: H/O: gout Discharge Disposition: 01-Home or Self Care Attending Physician: Daniel Vela MD Admitting Physician: Daniel Vela MD Vital Signs Most recent to 1 oldest [Reference Range]: Temperature Tympanic 36.9 degC [36.6-38.1 degC] (12/03/16 1:31 PM) Peripheral Pulse 71 bpm Rate [60-100 bpm] (12/03/16 1:31 PM) Respiratory Rate 16 br/min [14-20 br/min] (12/03/16 1:31 PM) Blood Pressure 130/60 mmHg [90-140/60-90 mmHg] (12/03/16 1:31 PM) SpO2 98 % (12/03/16 1:31 PM) Problem List Condition Effective Dates Status [...] 0 Refill(s) Start Date: 06/01/14 Status: Ordered fluorometholone-neomycin ophthalmic 0 Refill(s) Start Date: 01/23/15 Status: Ordered meloxicam 15 mg oral tablet 15 mg 1 tabs, Oral, Daily, # 15 tabs, 0 Refill(s), Pharmacy: [facility], 1 tabs Oral Daily Start Date: 12/03/16 Status: Ordered nitroglycerin 0.2 mg/hr transdermal film, extended release 1 patches, Topical, Daily, # 90 patches, 0 Refill(s) Start Date: 06/06/14 Status: Ordered rOPINIRole 2 mg oral tablet 2 mg 1 tabs, Oral, Daily, # 90 tabs, 3 Refill(s), Pharmacy: [facility], 1 tabs Oral Daily Start Date: 08/28/16 Status: Ordered simvastatin 80 mg oral tablet 80 mg 1 tabs, Oral, Bedtime (once a day), # 90 tabs, 3 Refill(s), Pharmacy: [facility], 1 tabs Oral Bedtime (once a day) Start Date: 03/12/16 Status: Ordered Synthroid 88 mcg (0.088 mg) oral tablet See Instructions, TAKE 1 TABLET DAILY, # 90 tabs, 1 Refill(s), Pharmacy: [facility], TAKE 1 TABLET DAILY Start Date: 03/12/16 Status: Ordered Results Hematology Most recent to 1 oldest [Reference Range]: WBC [4.8-10.8 7.1 10*3/uL 10*3/uL] (12/03/16 2:30 PM) RBC [4.60-6.20] 3.92 *LOW* (12/03/16 2:30 PM) Hgb [14.0-18.0 12.9 gm/dL gm/dL] *LOW* (12/03/16 2:30 PM) Hct [42.0-52.0 %] 38.8 % *LOW* (12/03/16 2:30 PM) MCV [82.0-99.0 fL] 99.0 fL (12/03/16 2:30 PM) MCH [27.0-32.0 pg] 32.9 pg *HI* (12/03/16 2:30 PM) MCHC [32.0-36.0 33.2 gm/dL gm/dL] (12/03/16 2:30 PM) RDW [11.5-14.5 %] 12.3 % (12/03/16 2:30 PM) Platelet [150-400 198 10*3/uL 10*3/uL] (12/03/16 2:30 PM) MPV [8.8-14.8 fL] 9.4 fL (12/03/16 2:30 PM) Immature 0.1 % Granulocytes (12/03/16 2:30 PM) [0.0-1.0 %] Neutrophils [51-75 66 % %] (12/03/16 2:30 PM) Lymphocytes [20-46 19 % %] *LOW* (12/03/16 2:30 PM) Monocytes [4-11 %] 11 % (12/03/16 2:30 PM) Eosinophils [0-4 %] 4 % (12/03/16 2:30 PM) Basophils [0-2 %] 0 % (12/03/16 2:30 PM) Neutro Absolute 4.66 [1.90-7.00] (12/03/16 2:30 PM) Lymph Absolute 1.35 [0.80-3.30] (12/03/16 2:30 PM) [place] Absolute 0.80 [0.30-1.00] (12/03/16 2:30 PM) Eos Absolute 0.25 [0.00-0.50] (12/03/16 2:30 PM) Baso Absolute 0.01 [0.00-0.20] (12/03/16 2:30 PM) Chemistry Most recent to 1 oldest [Reference Range]: Uric Acid [3.5-7.2 7.3 mg/dL mg/dL] *HI* (12/03/16 2:30 PM) Immunizations Given and Recorded Vaccine Date Status Refusal Reason tetanus/diphth/pertuss (Tdap) adult/adol1 06/05/16 Recorded tetanus/diphth/pertuss (Tdap) adult/adol 10/01/12 Recorded influenza virus vaccine, inactivated 10/25/16 Given influenza virus vaccine, inactivated 07/31/15 Given influenza virus vaccine, inactivated 07/22/14 Recorded influenza virus vaccine, live 08/02/13 Given influenza virus vaccine, live 08/03/12 Given pneumococcal 13-valent conjugate vaccine 08/14/15 Given pneumococcal 23-polyvalent vaccine 09/01/06 Recorded pneumococcal 23-polyvalent vaccine 08/17/96 Recorded tetanus-diphth toxoids (Td) adult/adol 11/17/97 Given 1Location History: given at [facility] [place], [place] ER Procedures Procedure Date Related Diagnosis Body [...] 34 Assessment and Plan Extracted from: Title: Acute OV Author: Daniel Vela MD Date: 12/03/16 Impression and Plan Diagnosis H/O: gout ([id number] Z87.39, Discharge, Medical). 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 Orders Orders (Selected) Outpatient Orders Future (On Hold) CBC w/ Differential: Uric Acid: Prescriptions Prescribed meloxicam 15 mg oral tablet: 15 mg=1 tabs, Oral, Daily, 15 tabs, 0 Refill(s).
--- OUTSIDE RECORDS SUMMARY | 2017-01-19 12:50 | XMS REPORT | Referral Summary ---
Author Author [facility] Organization [facility] Address Unknown Phone Unavailable Care Team Providers Care Air Conditioning Technician Name Role Phone Misa Vela Primary Care Physician [phone] Encounter VC Date(s): 07/31/15 - 07/31/15 [facility] [address] [place] [address] [place] [id number] Discharge Disposition: 01-Home or Self Care Attending Physician: Bennie Bruno MD Admitting Physician: Bennie Bruno MD Vital Signs No data available for [...] Daily, # 90 tabs, 3 Refill(s), Pharmacy: [facility], 1 tabs Oral Daily Start Date: 11/24/15 Status: Ordered simvastatin 80 mg oral tablet 80 mg 1 tabs, Oral, Bedtime (once a day), # 90 tabs, 3 Refill(s), Pharmacy: [facility], 1 tabs Oral Bedtime (once a day) Start Date: 11/24/15 Status: Ordered Synthroid 88 mcg (0.088 mg) oral tablet See Instructions, TAKE 1 TABLET DAILY, # 90 tabs, 2 Refill(s), Pharmacy: [facility], TAKE 1 TABLET DAILY Start Date: [...]
--- OUTSIDE RECORDS SUMMARY | 2017-01-19 12:50 | XMS REPORT | Referral Summary ---
Author Author [facility] Organization [facility] Address Unknown Phone Unavailable Care Team Providers Care Automotive Quality Engineer Name Role Phone Misa Vela Primary Care Physician [phone] Encounter VC Date(s): 06/28/15 - 06/28/15 [facility] [address] [place] [address] [place] [id number] Discharge Diagnosis: Synovitis of foot Discharge Disposition: 01-Home or Self Care Attending Physician: Bennie Bruno MD Admitting Physician: Bennie Bruno MD Vital Signs Most recent to 1 oldest [Reference Range]: Temperature Tympanic 36.9 degC [36.6-38.1 degC] (06/28/15 3:47 PM) Peripheral Pulse 85 bpm Rate [60-100 bpm] (06/28/15 3:47 PM) Blood Pressure 124/70 mmHg [90-140/60-90 mmHg] (06/28/15 3:47 PM) SpO2 94 % (06/28/15 3:47 PM) Problem List Condition Effective Dates Status [...] Daily, # 90 tabs, 3 Refill(s), Pharmacy: [facility], 1 tabs Oral Daily Start Date: 11/24/15 Status: Ordered simvastatin 80 mg oral tablet 80 mg 1 tabs, Oral, Bedtime (once a day), # 90 tabs, 3 Refill(s), Pharmacy: [facility], 1 tabs Oral Bedtime (once a day) Start Date: 11/24/15 Status: Ordered Synthroid 88 mcg (0.088 mg) oral tablet See Instructions, TAKE 1 TABLET DAILY, # 90 tabs, 2 Refill(s), Pharmacy: [facility], TAKE 1 TABLET DAILY Start Date: [...] 34 Assessment and Plan Extracted from: Title: Ambulatory Patient Education Author: Bennie Bruno MD Date: 06/28 Follow Up With: Where: When: Bennie Bruno [address] [place] [address] Drive; [place] [address] Business ([employer] Within 3 to 5 days, only if needed Comments: Extracted from: Title: Office Visit Note Author: Bennie Bruno MD Date: 06/28/15 Assessment/Plan Synovitis of foot He will be placed on Colcrys 0.6 mg, 2 pills initially and then one pill one hour later. He will call back if he has further problems. Orders: colchicine, See Instructions, Take 2 pills initially then 1 pill 1 hour later., # 3 tabs, 0 Refill(s), [facility]
--- OUTSIDE RECORDS SUMMARY | 2017-01-19 12:51 | XMS REPORT | Referral Summary ---
Author Author [facility] Organization [facility] Address Unknown Phone Unavailable Care Team Providers Care Battery Starter Name Role Phone Licha Bruno Primary Care Physician [phone] Encounter VC Date(s): 07/17/15 - 07/17/15 [facility] [address] [place] [address] [place] [id number] Discharge Diagnosis: Acute gout Discharge Disposition: 01-Home or Self Care Attending Physician: Bennie Bruno MD Admitting Physician: Bennie Bruno MD Vital Signs Most recent to 1 oldest [Reference Range]: Temperature Tympanic 36.2 degC [36.6-38.1 degC] *LOW* (07/17/15 9:42 AM) Peripheral Pulse 83 bpm Rate [60-100 bpm] (07/17/15 9:42 AM) Blood Pressure 132/86 mmHg [90-140/60-90 mmHg] (07/17/15 9:42 AM) SpO2 94 % (07/17/15 9:42 AM) Problem List Condition Effective Dates Status [...] BEDTIME, # 90 tabs, 1 Refill(s), Pharmacy: [facility], TAKE 1 TABLET BY MOUTH AT BEDTIME Start Date: 05/30/15 Status: Ordered simvastatin 80 mg oral tablet See Instructions, TAKE 1 TABLET BY MOUTH AT BEDTIME, # 90 tabs, 1 Refill(s), Pharmacy: [facility], TAKE 1 TABLET BY MOUTH AT BEDTIME Start Date: 05/30/15 Status: Ordered Synthroid 88 mcg (0.088 mg) oral tablet See Instructions, TAKE 1 TABLET BY MOUTH EVERY DAY, # 90 tabs, 1 Refill(s), Pharmacy: [facility], TAKE 1 TABLET BY MOUTH EVERY DAY Start Date: 05/30/15 Status: Ordered Results Chemistry Most recent to 1 oldest [Reference Range]: Uric Acid [3.5-7.2 7.2 mg/dL mg/dL] (07/17/15 10:35 AM) Immunizations Vaccine Date Refusal Reason tetanus/diphth/pertuss [...] Patient Education Author: Bennie Bruno MD Date: Family Medicine Gout Gout is an inflammatory arthritis caused by a buildup of uric acid crystals in the joints. Uric acid is a chemical that is normally present in the blood. When the level of uric acid in the blood is too high it can form crystals that deposit in your joints and tissues. This causes joint redness, soreness, and swelling (inflammation). Repeat attacks are common. Over time, uric acid crystals can form into masses (tophi) near a joint, destroying bone and causing disfigurement. Gout is treatable and often preventable. CAUSES The disease begins with elevated levels of uric acid in the blood. Uric acid is produced by your body when it breaks down a naturally found substance called purines. Certain foods you eat, such as meats and fish, contain high amounts of purines. Causes of an elevated uric acid level include: Being passed down from parent to child (heredity). Diseases that cause increased uric acid production (such as obesity, psoriasis, and certain cancers). Excessive alcohol use. Diet, especially diets rich in meat and seafood. Medicines, including certain cancer-fighting medicines (chemotherapy), water pills (diuretics), and aspirin. Chronic kidney disease. The kidneys are no longer able to remove uric acid well. Problems with metabolism. Conditions strongly associated with gout include: Obesity. High blood pressure. High cholesterol. Diabetes. Not everyone with elevated uric acid levels gets gout. It is not understood why some people get gout and others do not. Surgery, joint injury, and eating too much of certain foods are some of the factors that can lead to gout attacks. SYMPTOMS An attack of gout comes on quickly. It causes intense pain with redness, swelling, and warmth in a joint. Fever can occur. Often, only one joint is involved. Certain joints are more commonly involved: Base of the big toe. Knee. Ankle. Wrist. Finger. Without treatment, an attack usually goes away in a few days to weeks. Between attacks, you usually will not have symptoms, which is different from many other forms of arthritis. DIAGNOSIS Your caregiver will suspect gout based on your symptoms and exam. In some cases , tests may be recommended. The tests may include: Blood tests. Urine tests. X-rays. Joint fluid exam. This exam requires a needle to remove fluid from the joint (arthrocentesis). Using a microscope, gout is confirmed when uric acid crystals are seen in the joint fluid. TREATMENT There are two phases to gout treatment: treating the sudden onset (acute) attack and preventing attacks (prophylaxis). Treatment of an Acute Attack. Medicines are used. These include anti-inflammatory medicines or steroid medicines. An injection of steroid medicine into the affected joint is sometimes necessary. The painful joint is rested. Movement can worsen the arthritis. You may use warm or cold treatments on painful joints, depending which works best for you. Treatment to Prevent Attacks. If you suffer from frequent gout attacks, your caregiver may advise preventive medicine. These medicines are started after the acute attack subsides. These medicines either help your kidneys eliminate uric acid from your body or decrease your uric acid production. You may need to stay on these medicines for a very long time. The early phase of treatment with preventive medicine can be associated with an increase in acute gout attacks. For this reason, during the first few months of treatment, your caregiver may also advise you to take medicines usually used for acute gout treatment. Be sure you understand your caregiver's directions. Your caregiver may make several adjustments to your medicine dose before these medicines are effective. Discuss dietary treatment with your caregiver or dietitian. Alcohol and drinks high in sugar and fructose and foods such as meat, poultry, and seafood can increase uric acid levels. Your caregiver or dietitian can advise you on drinks and foods that should be limited. HOME CARE INSTRUCTIONS Do not take aspirin to relieve pain. This raises uric acid levels. Only take ooed-bsm-jypwqzm or prescription medicines for pain, discomfort, or fever as directed by your caregiver. Rest the joint as much as possible. When in bed, keep sheets and blankets off painful areas. Keep the affected joint raised (elevated). Apply warm or cold treatments to painful joints. Use of warm or cold treatments depends on which works best for you. Use crutches if the painful joint is in your leg. Drink enough fluids to keep your urine clear or pale yellow. This helps your body get rid of uric acid. Limit alcohol, sugary drinks, and fructose drinks. Follow your dietary instructions. Pay careful attention to the amount of protein you eat. Your daily diet should emphasize fruits, vegetables, whole grains, and fat-free or low-fat milk products. Discuss the use of coffee, vitamin C, and cherries with your caregiver or dietitian. These may be helpful in lowering uric acid levels. Maintain a healthy body weight. SEEK MEDICAL CARE IF: You develop diarrhea, vomiting, or any side effects from medicines. You do not feel better in 24 hours, or you are getting worse. SEEK IMMEDIATE MEDICAL CARE IF: Your joint becomes suddenly more tender, and you have chills or a fever. MAKE SURE YOU: Understand these instructions. Will watch your condition. Will get help right away if you are not doing well or get worse. Document Released: 10/03/2001 Document Revised: 02/20/2015 Document Reviewed: [facility] Patient Information 2015 [employer]. This information is not intended to replace advice given to you by your health care provider. Make sure you discuss any questions you have with your health care provider. Follow Up With: Where: When: Bennie Bruno [address] [place] [address] Drive; [place] [address] Business (1) Within 3 to 5 days, only if needed Comments: Extracted from: Title: Office Visit Note Author: Bennie Bruno MD Date: 07/17/15 Assessment/Plan Acute gout He will be placed on Medrol Dosepak. Uric acid level is pending. Ordered: Uric Acid XR Foot Complete Right
--- OUTSIDE RECORDS SUMMARY | 2017-01-19 12:51 | XMS REPORT | Referral Summary ---
Author Author [facility] Organization [facility] Address Unknown Phone Unavailable Care Team Providers Care Payroll Processor Name Role Phone Mirian Misa Primary Care Physician [phone] Encounter VC Date(s): 08/21/16 - 08/21/16 [facility] [address] [place], [place] [address] Discharge Diagnosis: Bladder cancer Discharge Disposition: 01-Home or Self Care Attending Physician: Brody Spencer MD Admitting Physician: Brody Spencer MD Vital Signs Most recent to 1 oldest [Reference Range]: Blood Pressure 120/80 mmHg [90-140/60-90 mmHg] (08/21/16 8:28 AM) Problem List Condition Effective Dates Status [...] DAILY, # 90 tabs, 1 Refill(s), Pharmacy: [facility], TAKE 1 TABLET DAILY Start Date: 03/12/16 Status: Ordered warfarin 3 mg oral tablet mg tabs, Oral, Daily, 0 Refill(s) Start Date: 07/08/16 Status: Ordered Results No data available for [...] (Td) adult/adol 11/17/97 1Location History: given at [facility] ER Procedures Procedure Date Related Diagnosis Body [...] Extracted from: Title: Ambulatory Patient Education Author: Brody Spencer MD Date: Oncology Bladder Cancer Bladder cancer is an abnormal growth of tissue in your bladder. Your bladder is the balloon-like sac in your pelvis. It collects and stores urine that comes from the kidneys through the ureters. The bladder wall is made of layers. If cancer spreads into these layers and through the wall of the bladder, it becomes more difficult to treat. There are four stages of bladder cancer: Stage I. Cancer at this stage occurs in the bladder's inner lining but has not invaded the muscular bladder wall. Stage II. At this stage, cancer has invaded the bladder wall but is still confined to the bladder. Stage III. By this stage, the cancer cells have spread through the bladder wall to surrounding tissue. They may also have spread to the prostate in men or the uterus or vagina in women. Stage IV. By this stage, cancer cells may have spread to the lymph nodes and other organs, such as your lungs, bones, or liver. RISK FACTORS Although the cause of bladder cancer is not known, the following risk factors can increase your chances of getting bladder cancer: Smoking. Occupational exposures, such as rubber, leather, textile, dyes, chemicals , and paint. Being white. Age. Being male. Having chronic bladder inflammation. Having a bladder cancer history. Having a family history of bladder cancer (heredity). Having had chemotherapy or radiation therapy to the pelvis. Being exposed to arsenic. SYMPTOMS Blood in the urine. Pain with urination. Frequent bladder or urine infections. Increase in urgency and frequency of urination. DIAGNOSIS Your health care provider may suspect bladder cancer based on your description of urinary symptoms or based on the finding of blood or infection in the urine ( especially if this has recurred several times). Other tests or procedures that may be performed include: A narrow tube being inserted into your bladder through your urethra ( cystoscopy) in order to view the lining of your bladder for tumors. A biopsy to sample the tumor to see if cancer is present. If cancer is present, it will then be staged to determine its severity and extent. It is important to know how deeply into the bladder wall the cancer has grown and whether the cancer has spread to any other parts of your body. Staging may require blood tests or special scans such as a CT scan, MRI, bone scan, or chest X-ray. TREATMENT Once your cancer has been diagnosed and staged, you should discuss a treatment plan with your health care provider. Based on the stage of the cancer, one treatment or a combination of treatments may be recommended. The most common forms of treatment are: Surgery. Procedures that may be done include transurethral resection and cystectomy. Radiation therapy. This is infrequently used to treat bladder cancer. Chemotherapy. During this treatment, drugs are used to kill cancer cells. Immunotherapy. This is usually administered directly into the bladder. HOME CARE INSTRUCTIONS Take medicines only as directed by your health care provider. Maintain a healthy diet. Consider joining a support group. This may help you learn to cope with the stress of having bladder cancer. Seek advice to help you manage treatment side effects. Keep all follow-up visits as directed by your health care provider. Inform your cancer specialist if you are admitted to the hospital. SEEK MEDICAL CARE IF: There is blood in your urine. You have symptoms of a urinary tract infection. These include: Tiredness. Shakiness. Weakness. Muscle aches. Abdominal pain. Frequent and intense urge to urinate (in young women). Burning feeling in the bladder or urethra during urination (in young women). SEEK IMMEDIATE MEDICAL CARE IF: You are unable to urinate. This information is not intended to replace advice given to you by your health care provider. Make sure you discuss any questions you have with your health care provider. Document Released: 10/08/2004 Document Revised: 10/27/2015 Document Reviewed: [employer] Patient Education 2016 [employer] No follow up information was provided. Extracted from: Title: Office Visit Note Author: Brody Spencer MD Date: 08/21/16 Assessment/Plan 1.Bladder cancer
--- OUTSIDE RECORDS SUMMARY | 2017-01-19 12:51 | XMS REPORT | Referral Summary ---
Author Author [facility] Organization [facility] Address Unknown Phone Unavailable Care Team Providers Care Manual Arts Teacher Name Role Phone Misa Vela Primary Care Physician [phone] Encounter VC Date(s): 06/11/16 - 06/11/16 [facility], [address] [place] [id number] Discharge Diagnosis: Encounter for removal of sutures Discharge Disposition: 01-Home or Self Care Attending Physician: Daniel Vela MD Admitting Physician: Daniel Vela MD Vital Signs Most recent to 1 oldest [Reference Range]: Temperature Tympanic 35.4 degC [36.6-38.1 degC] *LOW* (06/11/16 9:24 AM) Peripheral Pulse 70 bpm Rate [60-100 bpm] (06/11/16 9:24 AM) Blood Pressure 121/80 mmHg [90-140/60-90 mmHg] (06/11/16 9:24 AM) Problem List Condition Effective Dates Status [...] Daily, # 90 tabs, 3 Refill(s), Pharmacy: [facility], 1 tabs Oral Daily Start Date: 11/24/15 Status: Ordered simvastatin 80 mg oral tablet 80 mg 1 tabs, Oral, Bedtime (once a day), # 90 tabs, 3 Refill(s), Pharmacy: [facility], 1 tabs Oral Bedtime (once a day) Start Date: 03/12/16 Status: Ordered Synthroid 88 mcg (0.088 mg) oral tablet See Instructions, TAKE 1 TABLET DAILY, # 90 tabs, 1 Refill(s), Pharmacy: [facility], TAKE 1 TABLET DAILY Start Date: 03/12/16 Status: Ordered Results No [...] (Td) adult/adol 11/17/97 1Location History: given at [facility] Procedures Procedure Date Related Diagnosis [...] 34 Assessment and Plan Extracted from: Title: Suture Removal Author: Daniel Vela MD Date: 06/11/16 Impression and Plan Diagnosis Encounter for removal of sutures ([id number] Z48.02, Discharge, Medical).
--- OUTSIDE RECORDS SUMMARY | 2017-01-19 12:51 | XMS REPORT | Referral Summary ---
Author Author [facility] Organization [facility] Address Unknown Phone Unavailable Care Team Providers Care Technical Project Manager Name Role Phone Misa Vela Primary Care Physician [phone] Encounter VC Date(s): 06/14/16 - 06/14/16 [facility], [address] [place] [id number] Discharge Diagnosis: Encounter for removal of sutures Discharge Disposition: 01-Home or Self Care Attending Physician: Daniel Vela MD Admitting Physician: Daniel Vela MD Vital Signs Most recent to 1 oldest [Reference Range]: Temperature Tympanic 35.9 degC [36.6-38.1 degC] *LOW* (06/14/16 10:54 AM) Peripheral Pulse 84 bpm Rate [60-100 bpm] (06/14/16 10:54 AM) Blood Pressure 121/87 mmHg [90-140/60-90 mmHg] (06/14/16 10:54 AM) Problem List Condition Effective Dates Status [...] Daily, # 90 tabs, 3 Refill(s), Pharmacy: [facility], 1 tabs Oral Daily Start Date: 11/24/15 Status: Ordered simvastatin 80 mg oral tablet 80 mg 1 tabs, Oral, Bedtime (once a day), # 90 tabs, 3 Refill(s), Pharmacy: [facility], 1 tabs Oral Bedtime (once a day) Start Date: 03/12/16 Status: Ordered Synthroid 88 mcg (0.088 mg) oral tablet See Instructions, TAKE 1 TABLET DAILY, # 90 tabs, 1 Refill(s), Pharmacy: [facility], TAKE 1 TABLET DAILY Start Date: [...] (Td) adult/adol 11/17/97 1Location History: given at [facility] ER Procedures Procedure Date Related Diagnosis Body [...] Suture Removal Author: Daniel Vela MD Date: 06/14/16 Impression and Plan Diagnosis Encounter for removal of sutures ([id number] Z48.02, Discharge, Medical).
--- OUTSIDE RECORDS SUMMARY | 2017-01-19 12:51 | XMS REPORT | Referral Summary ---
Author Author [facility] Organization [facility] Address Unknown Phone Unavailable Care Team Providers Care Insurance Claim Approver Name Role Phone Misa Vela Primary Care Physician [phone] Encounter VC Date(s): 07/17/15 - 07/17/15 [facility] [address] [place] [address] [place] [id number] Discharge Diagnosis: Acute gout Discharge Disposition: 01-Home [...] Daily, # 90 tabs, 3 Refill(s), Pharmacy: [facility], 1 tabs Oral Daily Start Date: 11/24/15 Status: Ordered simvastatin 80 mg oral tablet 80 mg 1 tabs, Oral, Bedtime (once a day), # 90 tabs, 3 Refill(s), Pharmacy: [facility], 1 tabs Oral Bedtime (once a day) Start Date: 11/24/15 Status: Ordered Synthroid 88 mcg (0.088 mg) oral tablet See Instructions, TAKE 1 TABLET DAILY, # 90 tabs, 2 Refill(s), Pharmacy: [facility], TAKE 1 TABLET DAILY [...] Cystoscopy, stent placement 1999 Cystoscopy, urethral dilation 2000 Colonoscopy1 1998 Repeat right inguinal hernia repair [...] This raises uric acid levels. Only take lcol-zpg-utnhskt or prescription medicines for pain, discomfort, or [...] Released: 10/03/2001 Document Revised: 02/20/2015 Document Reviewed: [facility] Patient Information 2015 [employer]. This information is not intended to replace advice given to you by your health care provider. Make sure you discuss any questions you have with your health care provider. Follow Up With: Where: When: Bennie Bruno [address] [place] [address] Drive; [place] [address] Business (1) Within 3 to 5 days, only if needed Comments: Extracted from: Title: Office Visit Note Author: Bennie Bruno MD Date: 07/17/15 Assessment/Plan Acute gout He will be placed on Medrol Dosepak. Uric acid level is pending. Ordered: Uric Acid XR Foot Complete Right
--- OUTSIDE RECORDS SUMMARY | 2017-01-19 12:51 | XMS REPORT | Referral Summary ---
Author Author [facility] Organization [facility] Address Unknown Phone Unavailable Care Team Providers Care Machine Filler Shredder Name Role Phone Licha Bruno Primary Care Physician [phone] Encounter VC Date(s): 07/31/15 - 07/31/15 [facility] [address] [place] [address] [place] [id number] Discharge Disposition: 01-Home or Self Care Attending [...] BEDTIME, # 90 tabs, 1 Refill(s), Pharmacy: [facility], TAKE 1 TABLET BY MOUTH AT BEDTIME Start Date: 05/30/15 Status: Ordered simvastatin 80 mg oral tablet See Instructions, TAKE 1 TABLET BY MOUTH AT BEDTIME, # 90 tabs, 1 Refill(s), Pharmacy: [facility], TAKE 1 TABLET BY MOUTH AT BEDTIME Start Date: 05/30/15 Status: Ordered Synthroid 88 mcg (0.088 mg) oral tablet See Instructions, TAKE 1 TABLET BY MOUTH EVERY DAY, # 90 tabs, 1 Refill(s), Pharmacy: [facility], TAKE 1 TABLET BY MOUTH [...]
--- OUTSIDE RECORDS SUMMARY | 2017-01-19 12:51 | XMS REPORT | Referral Summary ---
Author Author [facility] Organization [facility] Address Unknown Phone Unavailable Care Team Providers Care Musical Instrument Mechanic Name Role Phone Misa Vela Primary Care Physician [phone] Encounter VC Date(s): 09/07/16 - 09/07/16 [facility], [address] [place] [id number] Discharge Diagnosis: Acute bronchitis Discharge Disposition: 01-Home or Self Care Attending Physician: Pat Wright DO Admitting Physician: Pat Wright DO Vital Signs Most recent to 1 oldest [Reference Range]: Temperature Tympanic 37.0 degC [36.6-38.1 degC] (09/07/16 8:50 AM) Peripheral Pulse 78 bpm Rate [60-100 bpm] (09/07/16 8:50 AM) Blood Pressure 112/68 mmHg [90-140/60-90 mmHg] (09/07/16 8:50 AM) SpO2 97 % (09/07/16 8:50 AM) Problem List Condition Effective Dates Status [...] 0 Refill(s) Start Date: 07/08/16 Status: Ordered Levaquin 750 mg oral tablet 750 mg 1 tabs, Oral, q24hr, X 7 days, # 7 tabs, 0 Refill(s), Pharmacy: [facility], 1 tabs Oral q24hr,x7 days Start Date: 09/07/16 Stop Date: 09/14/16 Status: Ordered nitroglycerin 0.2 mg/hr transdermal film, [...] Daily, # 90 tabs, 3 Refill(s), Pharmacy: [facility], 1 tabs Oral Daily Start Date: 08/28/16 Status: Ordered simvastatin 80 mg oral tablet 80 mg 1 tabs, Oral, Bedtime (once a day), # 90 tabs, 3 Refill(s), Pharmacy: [facility], 1 tabs Oral Bedtime (once a day) Start Date: 03/12/16 Status: Ordered Synthroid 88 mcg (0.088 mg) oral tablet See Instructions, TAKE 1 TABLET DAILY, # 90 tabs, 1 Refill(s), Pharmacy: [facility], TAKE 1 TABLET DAILY Start [...] (Td) adult/adol 11/17/97 1Location History: given at [facility] Procedures Procedure Date Related Diagnosis Body [...] 34 Assessment and Plan Extracted from: Title: IC bronchitis Author: Pat Wright DO Date: 09/07/16 Assessment/Plan Acute bronchitis since this has been going on for a week will go ahead with antibiotic, due to allergies will do Levaquin. RTC if not improving. Ordered: Office Visit Level 3 Est [address]80
[2017-01-19] MEDS ORDERED: ROPI2TAB6 PO (13:13)
[2017-01-19] MEDS: NITROGLYCERIN 0.4 MG SUBLINGUAL TABLET SL PRN ×2 (13:21→13:31)
[2017-01-19] MEDS ORDERED: ASPIRIN 81 MG CHEWABLE TABLET PO ONE (13:30)
--- OUTSIDE RECORDS SUMMARY | 2017-01-19 13:36 | XMS REPORT | Continuity of Care Document ---
Author Author [facility] Organization [facility] Address Unknown Phone Unavailable Allergies Active Description [...] Rash 02/15/2014 Yes Atorvastatin Calcium NKMA N/A [id number] 05/31/2014 Yes iodine NKMA N/A N/A 09/11/2015 [...] Status Pt. Type Provider Facility Loc./Unit Complaint [id number] 05/12/2014 20:09:00 2013 23:25:00 DIS Emergency Sarah AVERY, Cyndy Us [facility] [id number] 08/04/2012 12:51:00 2011 12:57:00 DIS Inpatient Home AVERY, Jeny Willingham [id number]
--- NOTE | 2017-01-19 13:40 | ERPDOC ---
Departure Disposition Decision Date: Jan 19, 2017 Disposition Decision Time: 16:30 Disposition: 01 DISCHARGED HOME, SELF-CARE Impression Impression Impression: Primary Impression: Chest pain Chest pain type: precordial pain Qualified Codes: R07.2 - Precordial pain Severity: Moderate Condition: Stable Seen By: Physician only Referrals: TENISHA MOROCHO MD (Family) Patient Instructions: Chest Pain (ED) Problems/Meds/Labs Reviewed?: Yes Medications reviewed and manag: Yes Additional Instructions: Home to rest tonight. Call your motion designer's office in the morning to make an appointment to follow up. If chest pain recurs, try taking a nitro tablet. may take up to 3 tablets, by 5 minutes each time. If chest pain persists despite the nitro, return to ER. Follow up care ordered?: Yes Mental Status: Alert, Oriented HPI - Chest Pain General Chief Complaint: Chest Pain Stated Complaint: TIGHTNESS IN CHEST, WEAKNESS Time Seen by Provider: 13:16 Source: patient, family (), RN notes reviewed, old records Exam Limitations: no limitations HPI - Chest Pain Initial Comments This patient presents to the ER complaining of chest tightness that is going across the low chest along the lower end of the rib cage. It does not radiate anywhere, he can take a deep breath and it doesn't feel restricted or cause the pain to get worse. He had no nausea or diaphoresis. He didn't try anything for the pain. It started about 2 hours prior to his arrival while he was sitting at latter day. Denies any particular anxiety or stress. Occurred At: home Onset/Timing: Rapid Duration: 1-3 hrs Pain/Severity Scale: Now: 2/10, Worst: 7/10 Activities at Onset/Context: rest (sitting at latter day) Location: anterior R, anterior L Quality: tightness Associated Symptoms: denies symptoms Chest Pain Radiation: no radiation Nitro Today/Relief: 0.4 mg x 1, provided by ED, complete relief Aspirin Treatment Today: 81 mg x 4, provided by ED Prior Chest Pain/Cardiac Jose Miguel: angina, cardiac cath Allergies: Coded Allergies: Sulfa (Sulfonamide Antibiotics) (Verified Allergy, Unknown, 01/19/17) atorvastatin calcium (Verified Allergy, Unknown, 01/19/17) cephalexin (Verified Allergy, Unknown, 01/19/17) niacin (Verified Allergy, Unknown, 01/19/17) iodine (Verified Adverse Reaction, Unknown, 01/19/17) Past History Past Medical History Metabolic: cancer (bladder and kidney) Cardiac: CAD Surgical History General: hernia (inguinal and around the urostomy), other Cardiac: aneurysm repair Reproductive/: other Family History Family PMH: FOUND: other Vaccines Hx Influenza Vaccination: Yes (FALL 2009) Hx Pneumococcal Vaccination: No (3 YRS AGO) Social History Smoking Status: Unknown if ever smoked Does patient use chewing tobac: No Substance Use Type: does not use Alcohol Intake: none Marital Status: Sexuality: female partner Housing: house Household Members: spouse Current Occupational Status: retired Record Review Pertinent history updated: Yes Review of Systems Constitutional Constitutional: DENIES: appetite decrease, chills, dizziness, fever, weakness Eyes General: DENIES: pain Lids/Accessories: DENIES: erythema Vision: DENIES: blurring ENMT Ears: DENIES: pain Hearing: DENIES: hearing loss Balance: DENIES: vertigo Sinuses: DENIES: congestion, rhinorrhea Mouth/Throat: DENIES: sore throat Teeth: DENIES: pain Cardiovascular Cardiac: chest pain, see HPI, DENIES: dyspnea on exertion, paroxysmal nocturnal dysp Rhythm/Rate: DENIES: irregular beat Vascular: DENIES: pedal edema, unilateral swelling Pulmonary Respiratory: DENIES: cough, dyspnea, pleuritic chest pain, sputum GI Upper Abdomen: DENIES: heartburn/indigestion, nausea, vomiting Lower Abdomen: DENIES: blood in stool, constipation, diarrhea General: DENIES: dysuria, hematuria Male: DENIES: hesitancy Musculoskeletal General: DENIES: joint pain, pain Integumentary Skin: DENIES: itching, rash Neurological General: DENIES: headache, memory disturbances, seizures, syncope Psychiatric Psychiatric: DENIES: anxiety, depression Endocrine Endocrine: DENIES: heat/cold intolerance Hematologic/Lymphatic Hematologic/Lymphatic: DENIES: anemia, easy bruising Allergic/Immunological Allergic/Immunoligical: DENIES: hives All other Systems All Other Systems: Reviewed and Negative Physical Exam General General Nourishment: well nourished, well developed, appears stated age, no acute distress, adult General Body Habitus: well groomed Vitals and Pain First Documented Vital Signs Date Time Temp Pulse Resp B/P Pulse Ox O2 Delivery O2 Flow Rate FiO2 01/19/17 12:50 97.7 76 16 174/100 95 Room Air Weight: Kilograms: 100.000 Height (feet): 5 Height (inches): 11.00 Triage Pain Scale: RN VS reviewed by Provider: Yes Normal Exams: Head: Normocephalic w/o trauma Eyes: Pupils are PERRLA w/ EOMI, No scleral icterus, irritation, or foreign bodies noted ENMT: No facial trauma, nasal exudates, pharyngeal erythema, or exudates are noted Neck: Full range of motion, without adenopathy, JVD, bruits or thyromegaly Chest/Resp: Clear all [place], with good airflow, and symmetry bilaterally CV: Regular rate and rhythm, without murmur or gallop, Pulses 2+ all extremities, capillary refill, <2 seconds all ext., no pedal edema noted Abdomen: Bowel sounds positive, soft, non-tender, non-distended, no hepatosplenomegaly, masses or bruits noted Musculoskeletal: No tenderness, or deformity noted, good range of motion, all extremities Integumentary: No rashes, hives, or bruising noted, hair and nails, without abnormality Neurologic: Patient is alert, and oriented, cranial nerves, motor/sensory/ cerebellar, exams w/o gross deficits, to observation Psychiatric: Patient exhibits, appropriate attention, emotion and affect Differential Diagnoses Considering: Acute CO, Anxiety/Panic, Angina, Esophageal Spasm, GERD, Other Progress Results/Orders Orders Procedure Category Date Status Time Cbc W/Auto LAB 01/19/17 Complete Diff-Reflex Manual 13:16 Bmp - Basic Metabolic LAB 01/19/17 Complete Panel 13:16 Probnp LAB 01/19/17 Complete 13:16 Troponin I W LAB 01/19/17 Complete Hemolysis Index 13:16 INR LAB 01/19/17 Complete 13:16 EKG EKG 01/19/17 Taken 13:16 Chest 1 View RAD 01/19/17 Resulted 13:16 Iv Lock (Ed Only) EDM 01/19/17 Transmitted 13:16 Aspirin (Asa) PHA 01/19/17 Complete 13:30 Nitroglycerin PHA 01/19/17 Complete (Nitrostat) 13:30 Troponin I W LAB 01/19/17 Complete Hemolysis Index Lab Results Laboratory Tests Test 01/19/17 13:30 01/19/17 16:01 White Blood Count 5.1T/MM3 Red Blood Count 4.09M/MM3 Hemoglobin 13.4GM/DL Hematocrit 40.8% Mean Corpuscular Volume 99.8UM3 Mean Corpuscular Hemoglobin 32.8UUG Mean Corpuscular Hemoglobin Concent 32.8GM/DL RDW Standard Deviation 43.7FL Platelet Count 197T/MM3 Mean Platelet Volume 9.3UM3 Immature Granulocyte % (Auto) 0.2% Neutrophils (%) (Auto) 52.8% Lymphocytes (%) (Auto) 30.8% Monocytes (%) (Auto) 9.9% Eosinophils (%) (Auto) 5.7% Basophils (%) (Auto) 0.6% Absolute Immature Granulocyte (auto 0.01T/MM3 Absolute Neutrophils (auto) 2.7T/MM3 Absolute Lymphocytes (auto) 1.6T/MM3 Absolute Monocytes (auto) 0.5T/MM3 Absolute Eosinophils (auto) 0.3T/MM3 Absolute Basophils (auto) 0.0T/MM3 Prothromb Time International Ratio 1.04 Turbidity < 20 Sodium Level 147MEQ/L Potassium Level 4.2MEQ/L Chloride Level 108MEQ/L Carbon Dioxide Level 24MEQ/L Anion Gap 15MEQ/L Blood Urea Nitrogen 26.0MG/DL Creatinine 1.9MG/DL Glomerular Filtration Rate Calc 34 BUN/Creatinine Ratio 14RATIO Glucose Level 119MG/DL Calculated Osmolality 288MOSM/KG Calcium Level 9.0MG/DL Icterus Index < 2 Troponin I < 0.012ng/ml < 0.012ng/ml FM-Woj-M-Type Natriuretic Peptide 238PG/ML Chemistry Specimen Hemolysis < 15 < 15 Medications Current ED Medications Aspirin (ASA) 324 mg O ONCE PO Last administered on 01/19/17 13:20; Start 01/19 at 13:30; Stop 01/19/17 at 13:31; Status DC Nitroglycerin (Nitrostat) 0.4 mg Q5MIN PRN SL CHEST PAIN Last administered on 13:31; Start 01/19/17 at 13:30; Stop 01/19/17 at 17:01; Status DC Progress Progress Patient's chest tightness was resolved with one nitro in ER and did not recur. Regional Geodetic Advisor asked for second troponin and if negative can be seen as outpatient tomorrow. Second troponin was fine, pt agrees with plan. EKG EKG : Rate: 60-100 Interpreted by: signing physician EKG Comments paced rhythm, appears unchanged compared to 03/28/12 EKG Consult/PCP Consult/PCP : Type of discussion: Phone Consult/PCP Comments [id number] -- Dr Zapata for Dr Kelly -- Repeat Troponin -- if negative follow in office this week. Xray Xray : Xray: CXR Portable Interpretation: Normal, Reviewed Written Report TAD SHANNON MD Jan 19, 2017 13:40
--- NOTE | 2017-01-19 13:53 | NUR ---
UPDATE PT STATES HE IS PAIN FREE AFTER 1 NITRO SL AT THIS TIME. DR. SHANNON AWARE.
[2017-01-19 13:56] LABS: BASOPHILS % (AUTO) 0.6 % (0-2); EOSINOPHILS # (AUTO) 0.3 T/MM3 (0-0.5); EOSINOPHILS % (AUTO) 5.7 % (0-4); HCT - HEMATOCRIT 40.8 % (41-53); HGB - HEMOGLOBIN 13.4 GM/DL (13.5-17.5); IMMATURE GRANULOCYTE # (AUTO) 0.01 T/MM3 (0.00-0.03); IMMATURE GRANULOCYTE % (AUTO) 0.2 % (0.0-0.5); LYMPHOCYTES # (AUTO) 1.6 T/MM3 (1-4.8); LYMPHOCYTES % (AUTO) 30.8 % (23-45); MEAN CORPUSCULAR HGB 32.8 UUG (26-34); MEAN CORPUSCULAR HGB CONC(MCHC 32.8 GM/DL (31-37); MEAN CORPUSCULAR VOLUME 99.8 UM3 (80-100); MEAN PLATELET VOLUME 9.3 UM3 (9.4-12.4); MONOCYTES # (AUTO) 0.5 T/MM3 (0-0.8); MONOCYTES % (AUTO) 9.9 % (0-9.0); NEUTROPHILS #(AUTO)-ABSOLUTE 2.7 T/MM3 (1.8-7.7); NEUTROPHILS % (AUTO) 52.8 % (33-66); RED BLOOD COUNT 4.09 M/MM3 (4.50-5.90); WBC - WHITE BLOOD COUNT 5.1 T/MM3 (4.5-11.0)
[2017-01-19 13:58] LABS: INR 1.04 (0.76-1.04); PROTHROMBIN TIME 11.3 SEC (9.31-12.49)
[2017-01-19 14:02] LABS: ANION GAP 15 MEQ/L (5-15); BUN/CREATININE RATIO 14 RATIO (6-26); CHLORIDE 108 MEQ/L (98-107); CO2 - CARBON DIOXIDE 24 MEQ/L (22-30); CREATININE 1.9 MG/DL (0.8-1.5); GLOMERULAR FILTRATION RATE 34; GLUCOSE 119 MG/DL (75-110); POTASSIUM 4.2 MEQ/L (3.6-5); SODIUM 147 MEQ/L (134-144)
[2017-01-19 14:13] LABS: PROBNP 238 PG/ML (0-175)
--- NOTE | 2017-01-19 14:24 | DI ---
Indication: ITS.REASON: chest tightness PROCEDURE: CHEST 1 VIEW: Encounter: Initial Comparison: March 28, 2012 FINDINGS: The lungs are clear. There is no abnormal airspace opacity, pleural effusion or pneumothorax identified. The heart size, pulmonary vasculature and mediastinum are stable. Left pacemaker. No significant skeletal abnormality is seen. IMPRESSION: No acute cardiopulmonary abnormality. .
[2017-01-19 16:47] VITALS: BP 125/88; PULSE 69; RESP 30; TEMP 97.7; O2SAT 96
== END 2017-01-19 16:47 | disposition home or self-care (01) ==
LOC: ED 12:45
DX: R07.2 Precordial pain (principal); I25.10 Atherosclerotic heart disease of native coronary artery without angina pectoris
CPT/HCPCS: 71010; 80048; 83880; 84484; 85025; 85610; 93005; 99284; A9270